=== PATIENT | female | born 1965 | race Caucasian/White ===

== ENCOUNTER → 2021-01-09 | Outpatient (CLI) | payer MEDICARE, OTHER ==
[~2021-01-09] MED LIST: BUMETANIDE2 MG PO; ECOTRIN81 MG PO; ELAVIL 10 MG TA10 MG PO; ESGIC 50-325-41 EACH PO; K-DUR TAB 10 M10 MEQ PO; KEFLEX CAP 500500 MG PO; KLOR-CON M2020 MEQ PO; MELOXICAM15 MG PO; NITROSTAT0.4 MG SL; NORCO 5-325 TA1 EACH PO; PRINIVIL10 MG PO; PROAIR HFA8.5 GM INH; PROBIOTIC1 EAC3 PO; RANITIDINE HCL300 MG PO; TIZANIDINE HCL4 MG PO; TOPROL XL50 MG PO; ZOCOR20 MG PO
== END ==
LOC: SLEEP 10:34
DX: D75.1 Secondary polycythemia (principal); G47.33 Obstructive sleep apnea (adult) (pediatric)
CPT/HCPCS: 95810

== ENCOUNTER → 2021-12-08 | Outpatient (CLI) | payer MEDICARE, OTHER | LOC: RAD 15:16 | DX: M54.50 Low back pain, unspecified (principal); M47.816 Spondylosis without myelopathy or radiculopathy, lumbar region | CPT/HCPCS: 72100 ==